=== PATIENT | female | born 1960 | race Two or more races ===

== ENCOUNTER 2016-04-21 14:10 | Inpatient (IN) | payer MEDICARE, MEDICAID ==
[~2016-04-21] VITALS: Ht 162.6 cm; Wt 45.4 kg
[~2016-04-21 14:10] MED LIST: CELEBREX100 MG ORAL; IBUPROFEN400 MG ORAL; NEXIUM2.5 MG ORAL; NORCO1 E1 ORAL; PREDNISONE5 M3 PO; RANITIDINE HCL150 MG ORAL; VALIUM5 MG ORAL
--- NOTE | 2016-04-21 15:00 | Emergency Room Report ---
History of Present Illness General Chief Complaint: Female Urogenital Problems Source: Patient Present Illness HPI 55-year-old female presents to emergency Department complaining of dysuria due to urinary tract infection for which she has been treated with oral antibiotics x2 months with no relief from Keflex or Cipro. Patient denies fevers or chills. Patient reports 10 out of 10 in severity dysuria denies hematuria although back pain. Denies CP, Palpitations, LOC, AMS, dizziness, Changes in Vision, Sensation, paresthesias, or a sudden severe headache. Allergies: Coded Allergies: PENICILLINS (Verified Allergy, Mild, Rash, 06/08/13) Patient History Past Medical History: see triage record Past Surgical History: none Pertinent Family History: none Now: No Immunizations: UTD Reviewed Nursing Documentation: PMH: Agreed, PSxH: Agreed Nursing Documentation-PMH Past Medical History: No History, Except For Hx Cardiac Problems: No - Rheumatoid arthritis Hx Cancer: Yes Hx Gastrointestinal Problems: Yes - Colon CA- colostomy Hx Neurological Problems: No Review of Systems All Other Systems: negative except mentioned in HPI Physical Exam Vital Signs Date Time Temp Pulse Resp B/P Pulse Ox O2 Delivery O2 Flow Rate FiO2 04/21/16 14:19 98.4 102 20 134/79 99 Room Air Sp02 EP Interpretation: abnormal - tachycardic at 102 General Appearance: no apparent distress, alert, GCS 15, non-toxic Head: normocephalic, atraumatic Eyes: bilateral eye PERRL, bilateral eye normal inspection ENT: hearing grossly normal, normal pharynx, no angioedema, normal voice Neck: full range of motion, supple/symm/no masses Respiratory: chest non-tender, lungs clear, normal breath sounds, speaking full sentences Cardiovascular #1: regular rate, rhythm, no edema Gastrointestinal: normal bowel sounds, non tender, soft, no guarding, no rebound Rectal: deferred Genitourinary: normal inspection, no CVA tenderness Musculoskeletal: back normal, normal range of motion, no calf tenderness, other - significant RA noted to the Hands bilaterally, pt. requires use of cane. Neurologic: alert, oriented x3, responsive, motor strength/tone normal, sensory intact, speech normal Psychiatric: judgement/insight normal, memory normal, mood/affect normal, no suicidal/homicidal ideation Skin: normal color, no rash, warm/dry, well hydrated Lymphatic: no adenopathy Medical Decision Making PA Attestation Dr. Calero is my supervising Physician whom patient management has been discussed with. Diagnostic Impression: Primary Impression: UTI (urinary tract infection) Qualified Codes: N30.00 - Acute cystitis without hematuria Additional Impression: Rheumatoid arthritis Qualified Codes: M06.9 - Rheumatoid arthritis, unspecified ER Course Pt. presents to the ED c/o dysuria, x 2 months no results from Keflex or Cipro. Ddx considered but are not limited to UTi , Pyelo, STI, Stone, Cystitis Vital signs: are WNL, pt. is afebrile H&PE are most consistent with UTI and two failed outpatient treatment attempts. ORDERS: - UA labs are attached : TNTC WBC's and few bacteria. -CBC: no leukocytosis, mild anemia noted. -CMP:hypochloremia, elevated alk phos. -Blood cultures x 2: Pending -Lactic acid: WNL ED INTERVENTIONS: -Pyridium 200mg -1g Aztreonam IVPB -500cc NS -Per Dr. Heath Culture sensitivity to Aztreonam. Pt. has E.Coli that is resistant to Cipro and Bactrim. DISPOSITION: at this time pt. will be admitted to Dr. Heath for UTI. Dr. Heath agreed to admit the pt. and to continue pt. care management. Labs Test 04/21/16 15:08 04/21/16 16:00 Urine Color Yellow Urine Appearance Cloudy Urine pH 5 (4.5-8.0) Urine Specific [place] 1.010 (1.005-1.035) Urine Protein 2+ (NEGATIVE) Urine Glucose (UA) Negative (NEGATIVE) Urine Ketones Negative (NEGATIVE) Urine Occult Blood 4+ (NEGATIVE) Urine Nitrite Negative (NEGATIVE) Urine Bilirubin Negative (NEGATIVE) Urine Urobilinogen Normal MG/DL (0.0-1.0) Urine Leukocyte Esterase 3+ (NEGATIVE) Urine RBC 0-2 /HPF (0 - 2) Urine WBC Tntc /HPF (0 - 2) Urine Squamous Epithelial Cells None /LPF (NONE/OCC) Urine Bacteria Few /HPF (NONE) White Blood Count 8.9 K/UL (4.8-10.8) Red Blood Count 3.29 M/UL (4.20-5.40) Hemoglobin 9.8 G/DL (12.0-16.0) Hematocrit 31.1 % (37.0-47.0) Mean Corpuscular Volume 95 FL (80-99) Mean Corpuscular Hemoglobin 29.7 PG (27.0-31.0) Mean Corpuscular Hemoglobin Concent 31.4 G/DL (32.0-36.0) Red Cell Distribution Width 16.5 % (11.6-14.8) Platelet Count 357 K/UL (150-450) Mean Platelet Volume 5.9 FL (6.5-10.1) Neutrophils (%) (Auto) 83.3 % (45.0-75.0) Lymphocytes (%) (Auto) 15.4 % (20.0-45.0) Monocytes (%) (Auto) 0.7 % (1.0-10.0) Eosinophils (%) (Auto) 0.3 % (0.0-3.0) Basophils (%) (Auto) 0.3 % (0.0-2.0) Sodium Level 136 mEQ/L (135-145) Potassium Level 4.7 mEQ/L (3.4-4.9) Chloride Level 95 mEQ/L (98-107) Carbon Dioxide Level 26 mEQ/L (20-30) Anion Gap 15 (5-15) Blood Urea Nitrogen 10 mg/dL (7-23) Creatinine 0.6 mg/dL (0.5-0.9) Estimat Glomerular Filtration Rate > 60 mL/min (>60) Glucose Level 106 mg/dL (74-106) Lactic Acid Level 1.40 mmol/L (0.66-2.22) Calcium Level 9.4 mg/dL (8.6-10.2) Total Bilirubin < 0.2 mg/dL (0.0-1.2) Aspartate Amino Transf (AST/SGOT) 25 U/L (5-40) Alanine Aminotransferase (ALT/SGPT) 23 U/L (3-33) Alkaline Phosphatase 382 U/L (35-104) Total Protein 8.6 g/dL (6.6-8.7) Albumin 3.5 g/dL (3.5-5.2) Globulin 5.1 g/dL Albumin/Globulin Ratio 0.6 (1.0-2.7) Last Vital Signs Date Time Temp Pulse Resp B/P Pulse Ox O2 Delivery O2 Flow Rate FiO2 04/21/16 14:19 98.4 102 20 134/79 99 Room Air Disposition: ADMITTED INPATIENT Condition: Ronda Kebede Apr 21, 2016 15:00
[2016-04-21 15:19] VITALS: BP 137/82
[2016-04-21] MEDS ORDERED: Phenazopyridine 200mg tab ORAL ONE (15:30)
[2016-04-21 16:32] LABS: APPEARANCE,URINE CLOUDY; KETONES,URINE NEGATIVE (NEGATIVE); LEUKOCYTE ESTERASE ,URINE 3+ (NEGATIVE); NITRITE,URINE NEGATIVE (NEGATIVE); PH,URINE 5 (4.5-8.0); PROTEIN,URINE 2+ (NEGATIVE); UROBILINOGEN,URINE NORMAL MG/DL (0.0-1.0)
[2016-04-21 16:38] LABS: RBC,URINE 0-2 /HPF (0 - 2); WBC,URINE TNTC /HPF (0 - 2)
[2016-04-21 16:39] LABS: BACTERIA,URINE FEW /HPF
[2016-04-21 16:47] LABS: BASOPHILS % (AUTO) 0.3 % (0.0-2.0); EOSINOPHILS % (AUTO) 0.3 % (0.0-3.0); LYMPHOCYTES % (AUTO) 15.4 % (20.0-45.0); MEAN CORPUSCULAR HEMOGLOBIN 29.7 PG (27.0-31.0); MEAN CORPUSCULAR HGB CONC 31.4 G/DL (32.0-36.0); MEAN CORPUSCULAR VOLUME 95 FL (80-99); MEAN PLATELET VOLUME 5.9 FL (6.5-10.1); MONOCYTES % (AUTO) 0.7 % (1.0-10.0); NEUTROPHILS % (AUTO) 83.3 % (45.0-75.0); PLATELET COUNT 357 K/UL (150-450); RED BLOOD COUNT 3.29 M/UL (4.20-5.40); RED CELL DISTRIBUTION WIDTH 16.5 % (11.6-14.8); WHITE BLOOD COUNT 8.9 K/UL (4.8-10.8)
[2016-04-21 16:51] LABS: ALANINE AMINOTRANSFERASE 23 U/L (3-33); ALBUMIN/GLOBULIN RATIO 0.6 (1.0-2.7); ANION GAP 15 (5-15); ASPARTATE AMINO TRANSFERASE 25 U/L (5-40); CALCIUM 9.4 mg/dL (8.6-10.2); CARBON DIOXIDE 26 mEQ/L (20-30); CHLORIDE 95 mEQ/L (98-107); CREATININE 0.6 mg/dL (0.5-0.9); GLOMERULAR FILTRATION RATE > 60 mL/min (>60); HEMOLYSIS 34; POTASSIUM 4.7 mEQ/L (3.4-4.9); SODIUM 136 mEQ/L (135-145); TOTAL PROTEIN 8.6 g/dL (6.6-8.7)
[2016-04-21 17:17] VITALS: BP 134/80
[2016-04-21] MEDS ORDERED: Aztreonam Inj 1 GM in D5W 55 ML IVPB ONE (18:30)
[2016-04-21 18:45] VITALS: BP 129/70
[2016-04-21] MEDS ORDERED: DOCUSATE SODIU100 MG ORAL (18:54)
[2016-04-21] MEDS ORDERED: CELEBREX200 MG ORAL (18:54)
--- NOTE | 2016-04-21 19:05 | History & Physical ---
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 was given keflex as it was sensitive to theat fut has doen worse admiited for possible pyelonephtitis PMH: RA ANEMIA CHROCNIC DISEASE fatigeu vulva cancer PSH: hip replcaement removal of most of pelvic oragan allergy: nkda viotal s reviewed no jcvd cta sof tno rgr no edema uti ra plan follow closcheryl start aztreonam adn get ifd and urology to maira. SUJATA ARRINGTON Apr 21, 2016 19:05
[2016-04-21] MEDS: Norco 7.5mg/325mg tab ORAL PRN (20:22)
[2016-04-21] MEDS: Aztreonam Inj 1 GM in D5W 55 ML IVPB SCH (21:42)
[2016-04-22] VITALS: BP 122/70
[2016-04-22] MEDS: Norco 7.5mg/325mg tab ORAL PRN ×2 (02:20→08:44)
[2016-04-22 04:00] VITALS: BP 113/69
[2016-04-22 06:47] LABS: BASOPHILS % (AUTO) 0.2 % (0.0-2.0); EOSINOPHILS % (AUTO) 0.6 % (0.0-3.0); LYMPHOCYTES % (AUTO) 19.5 % (20.0-45.0); MEAN CORPUSCULAR HEMOGLOBIN 28.8 PG (27.0-31.0); MEAN CORPUSCULAR HGB CONC 31.3 G/DL (32.0-36.0); MEAN CORPUSCULAR VOLUME 92 FL (80-99); MEAN PLATELET VOLUME 6.2 FL (6.5-10.1); NEUTROPHILS % (AUTO) 78.7 % (45.0-75.0); PLATELET COUNT 314 K/UL (150-450); RED BLOOD COUNT 3.02 M/UL (4.20-5.40); RED CELL DISTRIBUTION WIDTH 16.2 % (11.6-14.8); WHITE BLOOD COUNT 6.7 K/UL (4.8-10.8)
[2016-04-22 07:10] LABS: ANION GAP 12 (5-15); CALCIUM 8.8 mg/dL (8.6-10.2); CARBON DIOXIDE 26 mEQ/L (20-30); CHLORIDE 101 mEQ/L (98-107); CREATININE 0.5 mg/dL (0.5-0.9); GLOMERULAR FILTRATION RATE > 60 mL/min (>60); HEMOLYSIS 0; POTASSIUM 4.4 mEQ/L (3.4-4.9); SODIUM 139 mEQ/L (135-145)
[2016-04-22 08:15] VITALS: BP 127/70
[2016-04-22] MEDS: Aztreonam Inj 1 GM in D5W 55 ML IVPB SCH ×2 (08:41→22:02)
[2016-04-22] MEDS: Meloxicam 15 MG TAB ORAL SCH (08:44)
[2016-04-22] MEDS: Docusate 100mg cap ORAL SCH ×2 (08:44→18:16)
[2016-04-22] MEDS: PredniSONE 5mg tab ORAL SCH (08:45)
[2016-04-22 12:15] VITALS: BP 121/65
--- NOTE | 2016-04-22 14:27 | Infectious Diseases Prog Note ---
Assessment/Plan Assessment/Plan Full consult dictated: A) 1) uti, + ua, complicated uti 2) allergy - pcn 3) pmh noted P) 1) aztreonam 2) check uc 3) continue treatment per primary and urology 4) thank you Subjective Gastrointestinal/Abdominal: Reports: diarrhea, vomiting Genitourinary: Reports: other - no quiles Allergies: Coded Allergies: PENICILLINS (Verified Allergy, Mild, Rash, 06/08/13) Objective Vital Signs Last 24 Hour Vital Signs Date Time Temp Pulse Resp B/P Pulse Ox O2 Delivery O2 Flow Rate FiO2 04/22/16 12:15 97.8 82 20 121/65 95 Room Air 04/22/16 08:15 98.4 103 20 127/70 97 Room Air 04/22/16 04:00 97.9 83 18 113/69 96 Room Air 04/22/16 00:00 98.1 92 18 122/70 96 Room Air 04/21/16 18:45 98.1 90 20 129/70 100 Room Air 04/21/16 17:22 98.3 85 19 134/80 100 Room Air 04/21/16 17:17 85 19 134/80 100 Room Air 04/21/16 15:19 98.3 98 19 137/82 100 Room Air 04/21/16 14:19 98.4 102 20 134/79 99 Room Air Height (Feet): 5 Height (Inches): 4.00 Weight (Pounds): 100 Microbiology Date/Time Source Procedure Growth Status 04/21/16 15:08 Urine,Clean Catch Urine Culture - Preliminary Resulted Laboratory Tests Test 04/21/16 15:08 04/21/16 16:00 04/22/16 05:35 Urine Color Yellow Urine Appearance Cloudy Urine pH 5 (4.5-8.0) Urine Specific [place] 1.010 (1.005-1.035) Urine Protein 2+ (NEGATIVE) H Urine Glucose (UA) Negative (NEGATIVE) Urine Ketones Negative (NEGATIVE) Urine Occult Blood 4+ (NEGATIVE) H Urine Nitrite Negative (NEGATIVE) Urine Bilirubin Negative (NEGATIVE) Urine Urobilinogen Normal MG/DL (0.0-1.0) Urine Leukocyte Esterase 3+ (NEGATIVE) H Urine RBC 0-2 /HPF (0 - 2) Urine WBC Tntc /HPF (0 - 2) H Urine Squamous Epithelial Cells None /LPF (NONE/OCC) Urine Bacteria Few /HPF (NONE) White Blood Count 8.9 K/UL (4.8-10.8) 6.7 K/UL (4.8-10.8) Red Blood Count 3.29 M/UL (4.20-5.40) L 3.02 M/UL (4.20-5.40) L Hemoglobin 9.8 G/DL (12.0-16.0) L 8.7 G/DL (12.0-16.0) L Hematocrit 31.1 % (37.0-47.0) L 27.7 % (37.0-47.0) L Mean Corpuscular Volume 95 FL (80-99) 92 FL (80-99) Mean Corpuscular Hemoglobin 29.7 PG (27.0-31.0) 28.8 PG (27.0-31.0) Mean Corpuscular Hemoglobin Concent 31.4 G/DL (32.0-36.0) L 31.3 G/DL (32.0-36.0) L Red Cell Distribution Width 16.5 % (11.6-14.8) H 16.2 % (11.6-14.8) H Platelet Count 357 K/UL (150-450) 314 K/UL (150-450) Mean Platelet Volume 5.9 FL (6.5-10.1) L 6.2 FL (6.5-10.1) L Neutrophils (%) (Auto) 83.3 % (45.0-75.0) H 78.7 % (45.0-75.0) H Lymphocytes (%) (Auto) 15.4 % (20.0-45.0) L 19.5 % (20.0-45.0) L Monocytes (%) (Auto) 0.7 % (1.0-10.0) L 1.0 % (1.0-10.0) Eosinophils (%) (Auto) 0.3 % (0.0-3.0) 0.6 % (0.0-3.0) Basophils (%) (Auto) 0.3 % (0.0-2.0) 0.2 % (0.0-2.0) Sodium Level 136 mEQ/L (135-145) 139 mEQ/L (135-145) Potassium Level 4.7 mEQ/L (3.4-4.9) 4.4 mEQ/L (3.4-4.9) Chloride Level 95 mEQ/L (98-107) L 101 mEQ/L (98-107) Carbon Dioxide Level 26 mEQ/L (20-30) 26 mEQ/L (20-30) Anion Gap 15 (5-15) 12 (5-15) Blood Urea Nitrogen 10 mg/dL (7-23) 7 mg/dL (7-23) Creatinine 0.6 mg/dL (0.5-0.9) 0.5 mg/dL (0.5-0.9) Estimat Glomerular Filtration Rate > 60 mL/min (>60) > 60 mL/min (>60) Glucose Level 106 mg/dL (74-106) 91 mg/dL (74-106) Lactic Acid Level 1.40 mmol/L (0.66-2.22) Calcium Level 9.4 mg/dL (8.6-10.2) 8.8 mg/dL (8.6-10.2) Total Bilirubin < 0.2 mg/dL (0.0-1.2) Aspartate Amino Transf (AST/SGOT) 25 U/L (5-40) Alanine Aminotransferase (ALT/SGPT) 23 U/L (3-33) Alkaline Phosphatase 382 U/L (35-104) H Total Protein 8.6 g/dL (6.6-8.7) Albumin 3.5 g/dL (3.5-5.2) Globulin 5.1 g/dL Albumin/Globulin Ratio 0.6 (1.0-2.7) L Current Medications Medications (Trade) Dose Ordered Sig/Gabriela Route PRN Reason Start Time Stop Time Status Last Admin Dose Admin Acetaminophen/ Hydrocodone Bitart ([place] 7.5/325) 1 ea Q6H PRN ORAL Moderate Pain (Pain Scale 4-6) 04/22/16 11:00 04/28/16 19:14 Aztreonam/Dextrose (Azactam/D5W) 55 ml @ 110 mls/hr Q12HR IVPB 04/21/16 21:00 04/28/16 20:59 04/22/16 08:41 Docusate Sodium (Colace) 100 mg TWICE A DAY ORAL 04/22/16 09:00 05/22/16 08:59 04/22/16 08:44 Meloxicam (Mobic) 15 mg DAILY ORAL 04/22/16 09:00 05/22/16 08:59 04/22/16 08:44 Oxycodone/ Acetaminophen (Percocet 10/325) 1 tab Q4H PRN ORAL Severe Pain (Pain Scale 7-10) 04/22/16 11:00 04/29/16 10:59 Prednisone (predniSONE) 5 mg DAILY ORAL 04/22/16 09:00 05/22/16 08:59 04/22/16 08:45 EN DAVIS Apr 22, 2016 14:27
[2016-04-22 16:00] VITALS: BP 139/89
[2016-04-22] MEDS ORDERED: Tubing IV Secondary IV ONE (16:26)
--- NOTE | 2016-04-22 19:28 | Consultation ---
DATE OF CONSULTATION: 04/22/2016 CONSULTING PHYSICIAN: Anjel Robertson M.D. REFERRING PHYSICIAN: Emiliano Heath M.D. REASON FOR CONSULTATION: For evaluation of UTI. HISTORY OF PRESENT ILLNESS: This is an unfortunate 55-year-old female. She has a history of vulvar vaginal cancer. She has had a history of a surgical excision as well as radiation and skin grafting in the genital area. She also has a history of a colostomy. She apparently has a history of chronic hydronephrosis. She has had recurring urinary tract infections. She is able to urinate. She describes some dysuria, which apparently is chronic. She denies significant flank pain. Most of the history was obtained from the chart. PAST MEDICAL HISTORY: Significant for above. Also, history of osteoarthritis and history of colon cancer. PAST SURGICAL HISTORY: As above. Again colostomy. She had vaginal surgery with excision of tumor and radiation. CURRENT MEDICATIONS: In the hospital, the patient is on Percocet, [place], prednisone, Mobic, Colace, and aztreonam. ALLERGIES: Penicillin. SOCIAL HISTORY: She is currently nonsmoker. FAMILY HISTORY: Noncontributory. REVIEW OF SYSTEMS: As above. No chest pain. PHYSICAL EXAMINATION: GENERAL: This is an elderly female, in no acute distress. VITAL SIGNS: Temperature is 97.8 degrees, blood pressure 120/65, pulse is 80, and respirations 20. HEENT: Normocephalic. NECK: Supple. ABDOMEN: Soft. Colostomy is in place. GENITOURINARY: Reveals induration of the skin over the suprapubic area and vaginal area. The vulvar area is indurated. It is very difficult to even see introitus. EXTREMITIES: Slightly contracted. LABORATORY DATA: UA shows 2+ protein, 4+ blood, 3+ leukocyte esterase, too numerous to count WBCs, and few bacteria. White count is 6.7, hemoglobin 8.7, and platelets are 314,000. BUN 7, creatinine 0.5, and potassium 4.4. DIAGNOSTIC IMAGING STUDIES: The patient had a CT scan of the abdomen and pelvis last month and at that time, there was mention of right hydronephrosis, which appears to be chronic. There was no mention of obstructive uropathy. There was some leftward shift of the urinary bladder. IMPRESSION: 1. History of pyuria and urinary tract infection. 2. Hematuria. 3. Proteinuria. 4. Hydronephrosis. 5. Urinary tract symptoms of frequency. PLAN/DISCUSSION: The patient again does have a history of previous pelvic radiation, which has probably affected her bladder and the ureter. The findings are all chronic. 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 I would recommend to continue with empiric antibiotics ordered. We will follow up on the results of the urine culture and adjust accordingly. Her hydronephrosis appears to be chronic. There is no flank pain. Her renal function is stable and it can be watched. At some point, we will consider cystoscopy. I will follow the patient and any other recommendation will be forthcoming. Thank you Dr. Emiliano Heath for asking me to participate in this consultation. Anjel Robertson M.D. DR: STEWART JOB#: [id number] CC:
[2016-04-22 20:00] VITALS: BP 101/63
[2016-04-23] VITALS: BP 105/71
--- NOTE | 2016-04-23 01:58 | Consultation ---
DATE OF CONSULTATION: INFECTIOUS DISEASE CONSULTATION: ATTENDING PHYSICIAN: Emiliano Heath M.D. REASON FOR CONSULTATION: Complicated urinary tract infection, failing outpatient therapy. CHIEF COMPLAINT: The patient's chief complaint coming to the hospital is complicated UTI, failing outpatient therapy. HISTORY OF PRESENT ILLNESS: The patient is a 55-year-old female who has limited speaking ability. She is responsive and oriented. The patient presented to the [facility] with complicated UTI. The patient has generalized weakness. Urinalysis showed too many to count white blood cells. The patient was treated in an outpatient setting by oral antibiotics, but has failed therapy. Urine culture right now is pending and UA has too many to count white blood cells. The patient will be started on aztreonam and she is allergic to penicillin. She gets itching, but no significant swelling in my limited communication with the patient. Case discussed with RN. MAR was noted. Orders were noted. Notes were reviewed. PAST MEDICAL HISTORY: Includes the following: The patient has a past medical history of rheumatoid arthritis, anemia, history of fatigue, and history of vulvar cancer. She has a history of colostomy. She has anemia of chronic disease. No history of diabetes or hypertension. Please put past medical history in medical order. MEDICATIONS: Upon reviewing the MAR, the patient is on the following medications. She is on aztreonam. She is on Percocet. She is on [place]. She is on Mobic. She is on prednisone. She is on Colace. She has been on Pyridium and [place]. Please see medication in medical order. Outside medications were noted and reconciliated. She is on Celebrex, [place], docusate, and prednisone. ALLERGIES: Penicillin. She gets rash. I think she has already tried Keflex in the past and I believe she has tolerated it. SOCIAL HISTORY: Negative for smoking, alcohol, or drug use. FAMILY HISTORY: Noncontributory. Negative for exposure to tuberculosis or cancer. REVIEW OF SYSTEMS: Constitutional: No central line. No [place]. She has generalized weakness. She has no chills at this time. She has fatigue. No fevers at this time. Head And Neck: No thrush or dysphagia. Cardiac: No chest pain. GI: No nausea, vomiting, or diarrhea. : No [place]. Pulmonary: No congestion or shortness of breath. Skin: No rash or itching. Extremities: No extremity pain. Neurologic: No seizures. PHYSICAL EXAMINATION: VITAL SIGNS: Temperature 98.7 degrees, pulse rate 82, pulse rate has been as high as 103, respiratory rate 20, blood pressure 120/65, and saturation 95%. GENERAL: Alert and responsive, in no acute distress. HEENT: Head and Neck: Oral exam, no thrush. Eye exam, no icterus. Neck is supple. No JVD. No sinus tenderness. Normocephalic. No facial droop. No neck stiffness. HEART: Regular. No gallop or murmur. No friction or rub. LUNGS: Clear bilaterally. No rhonchi or rales. ABDOMEN: Soft. Positive bowel sounds. Nontender. She has a colostomy. SKIN: No rash or dermatitis. MUSCULOSKELETAL: No contractures. Legs are without cellulitis. PERIPHERAL VASCULAR: No cyanosis or gangrene. RECTAL: Deferred. PELVIC: Deferred. BREASTS: Deferred. GENITOURINARY: No [place]. No CVA tenderness. LINE: Line site is without phlebitis. No central line. EXTREMITIES: She has some what looks like rheumatoid arthritic changes of the hands. NEUROLOGIC: Intact and nonfocal. Alert and oriented x3. LABORATORY AND DIAGNOSTIC DATA: White count 6.7, hemoglobin 8.7, and platelet count 314,000. Creatinine is normal at 0.5. LFTs were noted. Alkaline phosphatase elevated at 382. There are no imaging studies. Urine culture is pending. Urinalysis had too many to count white blood cells and 3+ leukocyte esterase. ASSESSMENT AND PLAN: 1. The patient had a complicated urinary tract infection with severe urinary tract infection with positive urinalysis and some generalized weakness and fatigue, complicated urinary tract infection failing outpatient therapy. Patient will continue on aztreonam 1 g IV q 8h. Pending urine culture with gram-negative coverage results. Continue with aztreonam. Check urine culture and follow up labs. 2. The patient has rheumatoid arthritis. She is on steroids. 3. The patient has a history of vulvar cancer. She has a colostomy. 4. Elevated alkaline phosphatase, possibly related to bone. She has no abdominal pain at this time. 5. Anemia of chronic disease. 6. Fatigue. 7. History of hip replacement. 8. No history of diabetes or hypertension. 9. Allergic to penicillin, but I believe she tolerated Keflex. 10. Case communicated with Dr. Heath. 11. Case discussed with Dr. Robertson, Urology. 12. Case discussed with RN. 13. Case discussed with the patient. 14. MAR was noted. 15. Notes were reviewed. 16. Social history is negative. 17. Family history noncontributory. 18. Continue treatment per primary consultants. 19. Consider ultrasound of the abdomen for the elevated alkaline phosphatase. Everett Sanon M.D. DR: Ana M JOB#: [id number] CC:
[2016-04-23 04:00] VITALS: BP 129/69
[2016-04-23] MEDS: Aztreonam Inj 1 GM in D5W 55 ML IVPB SCH ×3 (05:04→22:37)
[2016-04-23] MEDS: Norco 7.5mg/325mg tab ORAL PRN ×2 (05:06→20:00)
[2016-04-23 08:14] VITALS: BP 117/70
[2016-04-23] MEDS: Meloxicam 15 MG TAB ORAL SCH (09:44)
[2016-04-23] MEDS: Docusate 100mg cap ORAL SCH ×2 (09:44→17:19)
[2016-04-23] MEDS: PredniSONE 5mg tab ORAL SCH (09:44)
--- NOTE | 2016-04-23 10:27 | Urology Progress Note ---
Assessment/Plan Assessment/Plan 1. History of pyuria and urinary tract infection. 2. Hematuria. 3. Proteinuria. 4. Hydronephrosis, resolved. 5. Urinary tract symptoms of frequency. abx as ordered per ID monitor clinically cysto later Subjective Allergies: Coded Allergies: PENICILLINS (Verified Allergy, Mild, Rash, 06/08/13) Subjective all noted Objective Last 24 Hour Vital Signs Date Time Temp Pulse Resp B/P Pulse Ox O2 Delivery O2 Flow Rate FiO2 04/23/16 08:14 98.1 96 15 117/70 98 Room Air 04/23/16 04:00 97.5 85 18 129/69 98 Room Air 04/23/16 00:00 97.9 85 18 105/71 97 Room Air 04/22/16 20:00 98.8 91 16 101/63 98 Room Air 04/22/16 16:00 98.2 98 17 139/89 100 Room Air 04/22/16 12:15 97.8 82 20 121/65 95 Room Air Intake and Output 04/22/16 04/23/16 19:00 07:00 Intake Total 535 ml 175 ml Balance 535 ml 175 ml Intake Oral 480 ml 120 ml IV Total 55 ml 55 ml # Voids 3 6 Microbiology Date/Time Source Procedure Growth Status 04/21/16 16:00 Blood Blood Culture - Preliminary NO GROWTH AFTER 24 HOURS Resulted 04/21/16 15:08 Urine,Clean Catch Urine Culture - Preliminary Resulted Current Medications Medications (Trade) Dose Ordered Sig/Gabriela Route PRN Reason Start Time Stop Time Status Last Admin Dose Admin Acetaminophen/ Hydrocodone Bitart 1 ea 1 ea Q6H PRN ORAL Moderate Pain (Pain Scale 4-6) 04/22/16 11:00 04/28/16 19:14 04/23/16 05:06 Aztreonam/Dextrose (Azactam/D5W) 55 ml @ 110 mls/hr Q8HR IVPB 04/22/16 22:00 04/29/16 21:59 04/23/16 05:04 Docusate Sodium (Colace) 100 mg TWICE A DAY ORAL 04/22/16 09:00 05/22/16 08:59 04/23/16 09:44 Meloxicam (Mobic) 15 mg DAILY ORAL 04/22/16 09:00 05/22/16 08:59 04/23/16 09:44 Oxycodone/ Acetaminophen (Percocet 10/325) 1 tab Q4H PRN ORAL Severe Pain (Pain Scale 7-10) 04/22/16 11:00 04/29/16 10:59 04/22/16 22:01 Prednisone (predniSONE) 5 mg DAILY ORAL 04/22/16 09:00 05/22/16 08:59 04/23/16 09:44 Height (Feet): 5 Height (Inches): 4.00 Weight (Pounds): 100 Objective exam stable abdominal u/s (04/22) noted and d/w radiologist, no hydro LY CHRISTIANSON Apr 23, 2016 10:27
[2016-04-23 11:37] VITALS: BP 108/65
--- NOTE | 2016-04-23 15:36 | Diagnostic Imaging Report ---
Indication:Abdominal pain Technique: Grayscale and duplex Doppler imaging of the abdomen performed. Comparison: None Findings: There is pneumobilia present. Gallbladder is unremarkable. Main portal vein is patent by Doppler exam. CBD is 3 mm. There is no free fluid. Spleen is normal in size. There are multiple splenic calcifications. Demonstrated part of the pancreas and aorta appear unremarkable. Impression: No acute findings. Splenic calcifications consistent with granulomata. Pneumobilia
[2016-04-23 16:00] VITALS: BP 106/67
[2016-04-23 19:00] VITALS: BP 112/65
--- NOTE | 2016-04-23 19:25 | General Progress Note ---
Assessment/Plan Status Narrative complicated urolgoical history recurent uti multio resistant bacterial urine infection history of bladder surgery history of recent xrt rheumatoixcd artheritis history of adrenal insufficieency antibiotic probbiotioc and follow per id and urology Subjective Date patient seen: Apr 23, 2016 Time patient seen: 19:23 Constitutional: Reports: no symptoms HEENT: Reports: no symptoms Cardiovascular: Reports: no symptoms Respiratory: Reports: no symptoms Gastrointestinal/Abdominal: Reports: no symptoms Allergies: Coded Allergies: PENICILLINS (Verified Allergy, Mild, Rash, 06/08/13) Objective Last 24 Hour Vital Signs Date Time Temp Pulse Resp B/P Pulse Ox O2 Delivery O2 Flow Rate FiO2 04/23/16 16:00 98.1 73 20 106/67 97 Room Air 04/23/16 13:15 97.7 04/23/16 11:37 97.7 89 16 108/65 93 Room Air 04/23/16 08:14 98.1 96 15 117/70 98 Room Air 04/23/16 04:00 97.5 85 18 129/69 98 Room Air 04/23/16 00:00 97.9 85 18 105/71 97 Room Air 04/22/16 20:00 98.8 91 16 101/63 98 Room Air Intake and Output 04/22/16 04/23/16 19:00 07:00 Intake Total 535 ml 175 ml Balance 535 ml 175 ml Intake Oral 480 ml 120 ml IV Total 55 ml 55 ml # Voids 3 6 Height (Feet): 5 Height (Inches): 4.00 Weight (Pounds): 100 General Appearance: WD/WN Neck: non-tender Cardiovascular: no JVD Respiratory/Chest: lungs clear Abdomen: non tender, soft SUJATA ARRINGTON Apr 23, 2016 19:25
[2016-04-24] VITALS: BP 120/64
[2016-04-24 04:00] VITALS: BP 111/67
[2016-04-24] MEDS: Aztreonam Inj 1 GM in D5W 55 ML IVPB SCH (05:36)
[2016-04-24] MEDS: Norco 7.5mg/325mg tab ORAL PRN (05:37)
[2016-04-24 07:11] LABS: BASOPHILS % (AUTO) 0.5 % (0.0-2.0); EOSINOPHILS % (AUTO) 0.7 % (0.0-3.0); LYMPHOCYTES % (AUTO) 21.8 % (20.0-45.0); MEAN CORPUSCULAR HEMOGLOBIN 28.8 PG (27.0-31.0); MEAN CORPUSCULAR HGB CONC 31.8 G/DL (32.0-36.0); MEAN CORPUSCULAR VOLUME 90 FL (80-99); MEAN PLATELET VOLUME 6.4 FL (6.5-10.1); MONOCYTES % (AUTO) 1.4 % (1.0-10.0); NEUTROPHILS % (AUTO) 75.6 % (45.0-75.0); PLATELET COUNT 327 K/UL (150-450); RED BLOOD COUNT 2.94 M/UL (4.20-5.40); RED CELL DISTRIBUTION WIDTH 16.6 % (11.6-14.8)
[2016-04-24 07:24] LABS: ANION GAP 14 (5-15); CALCIUM 8.6 mg/dL (8.6-10.2); CARBON DIOXIDE 24 mEQ/L (20-30); CHLORIDE 96 mEQ/L (98-107); CREATININE 0.5 mg/dL (0.5-0.9); GLOMERULAR FILTRATION RATE > 60 mL/min (>60); HEMOLYSIS 2; POTASSIUM 4.4 mEQ/L (3.4-4.9); SODIUM 134 mEQ/L (135-145)
[2016-04-24 08:34] VITALS: BP 112/72
[2016-04-24] MEDS: Docusate 100mg cap ORAL SCH ×2 (09:41→18:51)
[2016-04-24] MEDS: PredniSONE 5mg tab ORAL SCH (09:41)
[2016-04-24] MEDS: Meloxicam 15 MG TAB ORAL SCH (09:41)
[2016-04-24 11:59] VITALS: BP 106/62
--- NOTE | 2016-04-24 13:17 | Urology Progress Note ---
Assessment/Plan Assessment/Plan 1. History of pyuria and urinary tract infection. 2. Hematuria. 3. Proteinuria. 4. Hydronephrosis, resolved. 5. Urinary tract symptoms of frequency. abx as ordered per ID monitor clinically cysto later Subjective Allergies: Coded Allergies: PENICILLINS (Verified Allergy, Mild, Rash, 06/08/13) Subjective all noted, feels fair Objective Last 24 Hour Vital Signs Date Time Temp Pulse Resp B/P Pulse Ox O2 Delivery O2 Flow Rate FiO2 04/24/16 11:59 97.9 81 15 106/62 99 Room Air 04/24/16 08:34 97.8 62 16 112/72 98 Room Air 04/24/16 06:36 97.3 04/24/16 04:00 97.3 72 18 111/67 99 Room Air 04/24/16 01:04 97.0 04/24/16 00:00 97.0 76 20 120/64 94 Room Air 04/23/16 19:00 97.5 84 20 112/65 97 Room Air 04/23/16 16:00 98.1 73 20 106/67 97 Room Air Intake and Output 04/23/16 04/24/16 19:00 07:00 Intake Total 855 ml 295 ml Output Total 300 ml Balance 555 ml 295 ml Intake Oral 800 ml 240 ml IV Total 55 ml 55 ml Output Urine Total 300 ml # Voids 2 6 Microbiology Date/Time Source Procedure Growth Status 04/21/16 16:00 Blood Blood Culture - Preliminary NO GROWTH AFTER 48 HOURS Resulted 04/21/16 15:08 Urine,Clean Catch Urine Culture - Final Pseudomonas Aeruginosa Complete Current Medications Medications (Trade) Dose Ordered Sig/Gabriela Route PRN Reason Start Time Stop Time Status Last Admin Dose Admin Acetaminophen/ Hydrocodone Bitart 1 ea 1 ea Q6H PRN ORAL Moderate Pain (Pain Scale 4-6) 04/22/16 11:00 04/28/16 19:14 04/24/16 05:37 Aztreonam/Dextrose (Azactam/D5W) 55 ml @ 110 mls/hr Q8HR IVPB 04/22/16 22:00 04/29/16 21:59 04/24/16 05:36 Docusate Sodium (Colace) 100 mg TWICE A DAY ORAL 04/22/16 09:00 05/22/16 08:59 04/24/16 09:41 Meloxicam (Mobic) 15 mg DAILY ORAL 04/22/16 09:00 05/22/16 08:59 04/24/16 09:41 Oxycodone/ Acetaminophen (Percocet 10/325) 1 tab Q4H PRN ORAL Severe Pain (Pain Scale 7-10) 04/22/16 11:00 04/29/16 10:59 04/24/16 09:41 Prednisone (predniSONE) 5 mg DAILY ORAL 04/22/16 09:00 05/22/16 08:59 04/24/16 09:41 Laboratory Tests 04/24/16 06:30: White Blood Count 6.0, Red Blood Count 2.94L, Hemoglobin 8.5L, Hematocrit 26.6L , Mean Corpuscular Volume 90, Mean Corpuscular Hemoglobin 28.8, Mean Corpuscular Hemoglobin Concent 31.8L, Red Cell Distribution Width 16.6H, Platelet Count 327, Mean Platelet Volume 6.4L, Neutrophils (%) (Auto) 75.6H, Lymphocytes (%) (Auto) 21.8, Monocytes (%) (Auto) 1.4, Eosinophils (%) (Auto) 0.7, Basophils (%) (Auto) 0.5, Sodium Level 134L, Potassium Level 4.4, Chloride Level 96L, Carbon Dioxide Level 24, Anion Gap 14, Blood Urea Nitrogen 8, Creatinine 0.5, Estimat Glomerular Filtration Rate > 60, Glucose Level 97, Calcium Level 8.6 Height (Feet): 5 Height (Inches): 4.00 Weight (Pounds): 100 Objective exam stable abdominal u/s (04/22) noted and d/w radiologist, no LY Dickinson Apr 24, 2016 13:17
--- NOTE | 2016-04-24 13:51 | Infectious Diseases Prog Note ---
Assessment/Plan Assessment/Plan ASSESSMENT AND PLAN: 1. pseudomonas uti, complicated uti - change abx to cipro for 7 days more - discontinue aztreonam - check labs 2. The patient has rheumatoid arthritis. She is on steroids. 3. The patient has a history of vulvar cancer. She has a colostomy. 4. Elevated alkaline phosphatase, possibly related to bone. She has no abdominal pain at this time. 5. Anemia of chronic disease. 6. Fatigue. 7. History of hip replacement. 8. No history of diabetes or hypertension. 9. Allergic to penicillin, but I believe she tolerated Keflex. 10. Case communicated with Dr. Heath. 11. Case discussed with Dr. Robertson, Urology. 12. Case discussed with RN. 13. Case discussed with the patient. 14. MAR was noted. 15. Notes were reviewed. 16. Social history is negative. 17. Family history noncontributory. 18. Continue treatment per primary consultants. Subjective Constitutional: Denies: fever HEENT: Denies: congestion Respiratory: Denies: shortness of breath Cardiovascular: Denies: chest pain Gastrointestinal/Abdominal: Denies: diarrhea, nausea, vomiting Genitourinary: Reports: other - no quiles Psychiatric: Denies: depression Skin: Denies: rash Hematologic: Denies: bleeding Musculoskeletal: Denies: pain Allergies: Coded Allergies: PENICILLINS (Verified Allergy, Mild, Rash, 06/08/13) Objective Vital Signs Last 24 Hour Vital Signs Date Time Temp Pulse Resp B/P Pulse Ox O2 Delivery O2 Flow Rate FiO2 04/24/16 11:59 97.9 81 15 106/62 99 Room Air 04/24/16 08:34 97.8 62 16 112/72 98 Room Air 04/24/16 06:36 97.3 04/24/16 04:00 97.3 72 18 111/67 99 Room Air 04/24/16 01:04 97.0 04/24/16 00:00 97.0 76 20 120/64 94 Room Air 04/23/16 19:00 97.5 84 20 112/65 97 Room Air 04/23/16 16:00 98.1 73 20 106/67 97 Room Air Height (Feet): 5 Height (Inches): 4.00 Weight (Pounds): 100 General Appearance: no acute distress HEENT: normocephalic, atraumatic, anicteric, mucous membranes moist, PERRL, EOMI, pharynx normal, supple, no JVD Respiratory/Chest: lungs clear, normal breath sounds, no respiratory distress, no accessory muscle use Cardiovascular: normal rate, regular rhythm, no gallop/murmur, no JVD Abdomen: normal bowel sounds, soft, non tender, no organomegaly, non distended Genitourinary: other - no quiles, no cva pain Extremities: no cyanosis Skin: no rash 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, alert, oriented x 3, responsive Lymphatic: no neck adenopathy Musculoskeletal: no effusion Objective us abdomen - no acute findings Microbiology Date/Time Source Procedure Growth Status 04/21/16 16:00 Blood Blood Culture - Preliminary NO GROWTH AFTER 48 HOURS Resulted 04/21/16 15:45 Blood Blood Culture - Preliminary NO GROWTH AFTER 48 HOURS Resulted 04/21/16 15:08 Urine,Clean Catch Urine Culture - Final Pseudomonas Aeruginosa Complete Laboratory Tests Test 04/24/16 06:30 White Blood Count 6.0 K/UL (4.8-10.8) Red Blood Count 2.94 M/UL (4.20-5.40) L Hemoglobin 8.5 G/DL (12.0-16.0) L Hematocrit 26.6 % (37.0-47.0) L Mean Corpuscular Volume 90 FL (80-99) Mean Corpuscular Hemoglobin 28.8 PG (27.0-31.0) Mean Corpuscular Hemoglobin Concent 31.8 G/DL (32.0-36.0) L Red Cell Distribution Width 16.6 % (11.6-14.8) H Platelet Count 327 K/UL (150-450) Mean Platelet Volume 6.4 FL (6.5-10.1) L Neutrophils (%) (Auto) 75.6 % (45.0-75.0) H Lymphocytes (%) (Auto) 21.8 % (20.0-45.0) Monocytes (%) (Auto) 1.4 % (1.0-10.0) Eosinophils (%) (Auto) 0.7 % (0.0-3.0) Basophils (%) (Auto) 0.5 % (0.0-2.0) Sodium Level 134 mEQ/L (135-145) L Potassium Level 4.4 mEQ/L (3.4-4.9) Chloride Level 96 mEQ/L (98-107) L Carbon Dioxide Level 24 mEQ/L (20-30) Anion Gap 14 (5-15) Blood Urea Nitrogen 8 mg/dL (7-23) Creatinine 0.5 mg/dL (0.5-0.9) Estimat Glomerular Filtration Rate > 60 mL/min (>60) Glucose Level 97 mg/dL (74-106) Calcium Level 8.6 mg/dL (8.6-10.2) Current Medications Medications (Trade) Dose Ordered Sig/Gabriela Route PRN Reason Start Time Stop Time Status Last Admin Dose Admin Acetaminophen/ Hydrocodone Bitart 1 ea 1 ea Q6H PRN ORAL Moderate Pain (Pain Scale 4-6) 04/22/16 11:00 04/28/16 19:14 04/24/16 05:37 Aztreonam/Dextrose (Azactam/D5W) 55 ml @ 110 mls/hr Q8HR IVPB 04/22/16 22:00 04/29/16 21:59 04/24/16 05:36 Docusate Sodium (Colace) 100 mg TWICE A DAY ORAL 04/22/16 09:00 05/22/16 08:59 04/24/16 09:41 Meloxicam (Mobic) 15 mg DAILY ORAL 04/22/16 09:00 05/22/16 08:59 04/24/16 09:41 Oxycodone/ Acetaminophen (Percocet 10/325) 1 tab Q4H PRN ORAL Severe Pain (Pain Scale 7-10) 04/22/16 11:00 04/29/16 10:59 04/24/16 09:41 Prednisone (predniSONE) 5 mg DAILY ORAL 04/22/16 09:00 05/22/16 08:59 04/24/16 09:41 EN DAVIS Apr 24, 2016 13:51
[2016-04-24 16:00] VITALS: BP_SYST 104; BP_SYST 93; BP_DIAS 56; BP_DIAS 65
--- NOTE | 2016-04-24 17:45 | General Progress Note ---
Assessment/Plan Status Narrative complicated uti ra fatigue anemia of chronci diseae Assessment/Plan Iv antibiotic pt eval probiotic urology adn id recommendation appreciated. Subjective Date patient seen: Apr 24, 2016 Time patient seen: 17:43 Constitutional: Reports: no symptoms HEENT: Reports: no symptoms Cardiovascular: Reports: no symptoms Respiratory: Reports: no symptoms Gastrointestinal/Abdominal: Reports: no symptoms Neurologic/Psychiatric: Reports: no symptoms Endocrine: Reports: no symptoms Allergies: Coded Allergies: PENICILLINS (Verified Allergy, Mild, Rash, 06/08/13) Objective Last 24 Hour Vital Signs Date Time Temp Pulse Resp B/P Pulse Ox O2 Delivery O2 Flow Rate FiO2 04/24/16 16:00 97.9 91 19 104/65 98 Room Air 04/24/16 16:00 97.7 79 20 93/56 99 Room Air 04/24/16 11:59 97.9 81 15 106/62 99 Room Air 04/24/16 08:34 97.8 62 16 112/72 98 Room Air 04/24/16 06:36 97.3 04/24/16 04:00 97.3 72 18 111/67 99 Room Air 04/24/16 01:04 97.0 04/24/16 00:00 97.0 76 20 120/64 94 Room Air 04/23/16 19:00 97.5 84 20 112/65 97 Room Air Intake and Output 04/23/16 04/24/16 19:00 07:00 Intake Total 855 ml 295 ml Output Total 300 ml Balance 555 ml 295 ml Intake Oral 800 ml 240 ml IV Total 55 ml 55 ml Output Urine Total 300 ml # Voids 2 6 Laboratory Tests 04/24/16 06:30: White Blood Count 6.0, Red Blood Count 2.94L, Hemoglobin 8.5L, Hematocrit 26.6L , Mean Corpuscular Volume 90, Mean Corpuscular Hemoglobin 28.8, Mean Corpuscular Hemoglobin Concent 31.8L, Red Cell Distribution Width 16.6H, Platelet Count 327, Mean Platelet Volume 6.4L, Neutrophils (%) (Auto) 75.6H, Lymphocytes (%) (Auto) 21.8, Monocytes (%) (Auto) 1.4, Eosinophils (%) (Auto) 0.7, Basophils (%) (Auto) 0.5, Sodium Level 134L, Potassium Level 4.4, Chloride Level 96L, Carbon Dioxide Level 24, Anion Gap 14, Blood Urea Nitrogen 8, Creatinine 0.5, Estimat Glomerular Filtration Rate > 60, Glucose Level 97, Calcium Level 8.6 Height (Feet): 5 Height (Inches): 4.00 Weight (Pounds): 100 General Appearance: WD/WN EENT: PERRL/EOMI Cardiovascular: normal rate, regular rhythm, no JVD Respiratory/Chest: lungs clear Abdomen: soft Extremities: other - no edema SUJATA ARRINGTON Apr 24, 2016 17:45
[2016-04-24 20:00] VITALS: BP 110/63
[2016-04-25 00:45] VITALS: BP 113/70
[2016-04-25 04:00] VITALS: BP 131/72
[2016-04-25] MEDS: Norco 7.5mg/325mg tab ORAL PRN (06:43)
[2016-04-25 07:48] LABS: BASOPHILS % (AUTO) 0.3 % (0.0-2.0); EOSINOPHILS % (AUTO) 0.7 % (0.0-3.0); LYMPHOCYTES % (AUTO) 24.2 % (20.0-45.0); MEAN CORPUSCULAR HEMOGLOBIN 28.9 PG (27.0-31.0); MEAN CORPUSCULAR HGB CONC 31.8 G/DL (32.0-36.0); MEAN CORPUSCULAR VOLUME 91 FL (80-99); MEAN PLATELET VOLUME 5.9 FL (6.5-10.1); MONOCYTES % (AUTO) 1.3 % (1.0-10.0); NEUTROPHILS % (AUTO) 73.5 % (45.0-75.0); PLATELET COUNT 331 K/UL (150-450); RED BLOOD COUNT 3.01 M/UL (4.20-5.40); RED CELL DISTRIBUTION WIDTH 16.5 % (11.6-14.8); WHITE BLOOD COUNT 6.2 K/UL (4.8-10.8)
[2016-04-25 08:10] VITALS: BP 106/63
[2016-04-25] MEDS: Meloxicam 15 MG TAB ORAL SCH (08:21)
[2016-04-25] MEDS: PredniSONE 5mg tab ORAL SCH (08:21)
[2016-04-25 08:22] LABS: ANION GAP 14 (5-15); CALCIUM 8.5 mg/dL (8.6-10.2); CARBON DIOXIDE 26 mEQ/L (20-30); CHLORIDE 94 mEQ/L (98-107); CREATININE 0.5 mg/dL (0.5-0.9); GLOMERULAR FILTRATION RATE > 60 mL/min (>60); HEMOLYSIS 2; POTASSIUM 4.1 mEQ/L (3.4-4.9); SODIUM 134 mEQ/L (135-145)
[2016-04-25] MEDS: Docusate 100mg cap ORAL SCH ×2 (08:22→18:41)
--- NOTE | 2016-04-25 08:53 | Urology Progress Note ---
Assessment/Plan Assessment/Plan 1. History of pyuria and urinary tract infection. 2. Hematuria. 3. Proteinuria. 4. Hydronephrosis, resolved. 5. Urinary tract symptoms of frequency. abx as ordered per ID monitor clinically cysto later Subjective Allergies: Coded Allergies: PENICILLINS (Verified Allergy, Mild, Rash, 06/08/13) Subjective all noted, feels fair Objective Last 24 Hour Vital Signs Date Time Temp Pulse Resp B/P Pulse Ox O2 Delivery O2 Flow Rate FiO2 04/25/16 08:10 98.1 15 106/63 98 Room Air 04/25/16 04:00 97.5 83 18 131/72 98 Room Air 04/25/16 00:45 97.9 76 18 113/70 99 Room Air 04/24/16 20:00 97.3 76 16 110/63 97 Room Air 04/24/16 16:00 97.9 91 19 104/65 98 Room Air 04/24/16 16:00 97.7 79 20 93/56 99 Room Air 04/24/16 11:59 97.9 81 15 106/62 99 Room Air Intake and Output 04/24/16 04/25/16 19:00 07:00 Intake Total 1200 ml 490 ml Output Total 800 ml Balance 400 ml 490 ml Intake Oral 1200 ml 490 ml Output Urine Total 800 ml # Voids 2 8 # Bowel Movements 1 1 Microbiology Date/Time Source Procedure Growth Status 04/21/16 16:00 Blood Blood Culture - Preliminary NO GROWTH AFTER 48 HOURS Resulted 04/21/16 15:08 Urine,Clean Catch Urine Culture - Final Pseudomonas Aeruginosa Complete Current Medications Medications (Trade) Dose Ordered Sig/Gabriela Route PRN Reason Start Time Stop Time Status Last Admin Dose Admin Acetaminophen/ Hydrocodone Bitart 1 ea 1 ea Q6H PRN ORAL Moderate Pain (Pain Scale 4-6) 04/22/16 11:00 04/28/16 19:14 04/25/16 06:43 Ciprofloxacin (Cipro 400mg/ 200ml premix bag) 200 ml @ 200 mls/hr Q12HR@0600,1800 IV 04/24/16 16:00 05/01/16 15:59 04/25/16 06:30 Docusate Sodium (Colace) 100 mg TWICE A DAY ORAL 04/22/16 09:00 05/22/16 08:59 04/25/16 08:22 Meloxicam (Mobic) 15 mg DAILY ORAL 04/22/16 09:00 05/22/16 08:59 04/25/16 08:21 Oxycodone/ Acetaminophen (Percocet 10/325) 1 tab Q4H PRN ORAL Severe Pain (Pain Scale 7-10) 04/22/16 11:00 04/29/16 10:59 04/24/16 21:57 Prednisone (predniSONE) 5 mg DAILY ORAL 04/22/16 09:00 05/22/16 08:59 04/25/16 08:21 Laboratory Tests 04/25/16 05:45: White Blood Count 6.2, Red Blood Count 3.01L, Hemoglobin 8.7L, Hematocrit 27.3L , Mean Corpuscular Volume 91, Mean Corpuscular Hemoglobin 28.9, Mean Corpuscular Hemoglobin Concent 31.8L, Red Cell Distribution Width 16.5H, Platelet Count 331, Mean Platelet Volume 5.9L, Neutrophils (%) (Auto) 73.5, Lymphocytes (%) (Auto) 24.2, Monocytes (%) (Auto) 1.3, Eosinophils (%) (Auto) 0.7, Basophils (%) (Auto) 0.3, Sodium Level 134L, Potassium Level 4.1, Chloride Level 94L, Carbon Dioxide Level 26, Anion Gap 14, Blood Urea Nitrogen 6L, Creatinine 0.5, Estimat Glomerular Filtration Rate > 60, Glucose Level 106, Calcium Level 8.5L Height (Feet): 5 Height (Inches): 4.00 Weight (Pounds): 100 Objective exam stable abdominal u/s (04/22) noted and d/w radiologist, no hydro LY CHRISTIANSON Apr 25, 2016 08:53
[2016-04-25 11:41] VITALS: BP 128/76
[2016-04-25 16:25] VITALS: BP 149/75
--- NOTE | 2016-04-25 17:23 | General Progress Note ---
Assessment/Plan Assessment/Plan complictaed uti historyof bladder urether surgeyr as/p recent xrt vulvar canbcer anenis antibiotic probiotic dc dena Subjective Date patient seen: Apr 25, 2016 Constitutional: Reports: no symptoms HEENT: Reports: no symptoms Cardiovascular: Reports: no symptoms Respiratory: Reports: no symptoms Gastrointestinal/Abdominal: Reports: no symptoms Allergies: Coded Allergies: PENICILLINS (Verified Allergy, Mild, Rash, 06/08/13) Objective Last 24 Hour Vital Signs Date Time Temp Pulse Resp B/P Pulse Ox O2 Delivery O2 Flow Rate FiO2 04/25/16 16:25 97.9 78 15 149/75 100 Room Air 04/25/16 11:41 97.9 82 16 128/76 99 Room Air 04/25/16 08:10 98.1 15 106/63 98 Room Air 04/25/16 04:00 97.5 83 18 131/72 98 Room Air 04/25/16 00:45 97.9 76 18 113/70 99 Room Air 04/24/16 20:00 97.3 76 16 110/63 97 Room Air Intake and Output 04/24/16 04/25/16 19:00 07:00 Intake Total 1200 ml 490 ml Output Total 800 ml Balance 400 ml 490 ml Intake Oral 1200 ml 490 ml Output Urine Total 800 ml # Voids 2 8 # Bowel Movements 1 1 Laboratory Tests 04/25/16 05:45: White Blood Count 6.2, Red Blood Count 3.01L, Hemoglobin 8.7L, Hematocrit 27.3L , Mean Corpuscular Volume 91, Mean Corpuscular Hemoglobin 28.9, Mean Corpuscular Hemoglobin Concent 31.8L, Red Cell Distribution Width 16.5H, Platelet Count 331, Mean Platelet Volume 5.9L, Neutrophils (%) (Auto) 73.5, Lymphocytes (%) (Auto) 24.2, Monocytes (%) (Auto) 1.3, Eosinophils (%) (Auto) 0.7, Basophils (%) (Auto) 0.3, Sodium Level 134L, Potassium Level 4.1, Chloride Level 94L, Carbon Dioxide Level 26, Anion Gap 14, Blood Urea Nitrogen 6L, Creatinine 0.5, Estimat Glomerular Filtration Rate > 60, Glucose Level 106, Calcium Level 8.5L Height (Feet): 5 Height (Inches): 4.00 Weight (Pounds): 100 General Appearance: WD/WN Cardiovascular: no JVD Respiratory/Chest: lungs clear Abdomen: non tender, soft SUJATA ARRINGTON Apr 25, 2016 17:23
[2016-04-25 20:00] VITALS: BP 105/72
[2016-04-26] VITALS: BP 117/69
[2016-04-26 04:00] VITALS: BP 114/62
[2016-04-26] MEDS: Norco 7.5mg/325mg tab ORAL PRN ×2 (07:42→15:50)
[2016-04-26 08:15] VITALS: BP 138/69
[2016-04-26] MEDS: Docusate 100mg cap ORAL SCH ×2 (09:00→17:11)
[2016-04-26] MEDS: Meloxicam 15 MG TAB ORAL SCH (09:15)
[2016-04-26] MEDS: PredniSONE 5mg tab ORAL SCH (09:16)
--- NOTE | 2016-04-26 09:32 | Urology Progress Note ---
Assessment/Plan Assessment/Plan 1. History of pyuria and urinary tract infection. 2. Hematuria. 3. Proteinuria. 4. Hydronephrosis, resolved. 5. Urinary tract symptoms of frequency. abx as ordered per ID monitor clinically cysto later f/u on blood cx check repeat urine cx later Subjective Allergies: Coded Allergies: PENICILLINS (Verified Allergy, Mild, Rash, 06/08/13) Subjective all noted, feels fair Objective Last 24 Hour Vital Signs Date Time Temp Pulse Resp B/P Pulse Ox O2 Delivery O2 Flow Rate FiO2 04/26/16 08:15 98.3 70 21 138/69 97 Room Air 04/26/16 04:00 97.7 84 18 114/62 98 Room Air 04/26/16 00:00 97.7 78 18 117/69 99 Room Air 04/25/16 20:00 97.9 82 18 105/72 98 Room Air 04/25/16 16:25 97.9 78 15 149/75 100 Room Air 04/25/16 11:41 97.9 82 16 128/76 99 Room Air Intake and Output 04/25/16 04/26/16 19:00 07:00 Intake Total 1300 ml 350 ml Output Total 400 ml Balance 900 ml 350 ml Intake Oral 1300 ml 350 ml Output Urine Total 400 ml # Voids 4 Microbiology Date/Time Source Procedure Growth Status 04/21/16 16:00 Blood Blood Culture - Preliminary NO GROWTH AFTER 72 HOURS Resulted 04/21/16 15:08 Urine,Clean Catch Urine Culture - Final Pseudomonas Aeruginosa Complete Current Medications Medications (Trade) Dose Ordered Sig/Gabriela Route PRN Reason Start Time Stop Time Status Last Admin Dose Admin Acetaminophen/ Hydrocodone Bitart 1 ea 1 ea Q6H PRN ORAL Moderate Pain (Pain Scale 4-6) 04/22/16 11:00 04/28/16 19:14 04/26/16 07:42 Ciprofloxacin (Cipro 400mg/ 200ml premix bag) 200 ml @ 200 mls/hr Q12HR@0600,1800 IV 04/24/16 16:00 05/01/16 15:59 04/26/16 05:46 Docusate Sodium (Colace) 100 mg TWICE A DAY ORAL 04/22/16 09:00 05/22/16 08:59 04/25/16 18:41 Meloxicam (Mobic) 15 mg DAILY ORAL 04/22/16 09:00 05/22/16 08:59 04/26/16 09:15 Oxycodone/ Acetaminophen (Percocet 10/325) 1 tab Q4H PRN ORAL Severe Pain (Pain Scale 7-10) 04/22/16 11:00 04/29/16 10:59 04/25/16 22:43 Prednisone (predniSONE) 5 mg DAILY ORAL 04/22/16 09:00 05/22/16 08:59 04/26/16 09:16 Height (Feet): 5 Height (Inches): 4.00 Weight (Pounds): 100 Objective exam stable abdominal u/s (04/22) noted and d/w radiologist, no hydro LY CHRISTIANSON Apr 26, 2016 09:32
[2016-04-26] MEDS ORDERED: Tubing IV Secondary IV ONE (11:08)
[2016-04-26] MEDS ORDERED: NS 275ml ONE (11:08)
[2016-04-26 12:00] VITALS: BP 113/68
--- NOTE | 2016-04-26 13:44 | Infectious Diseases Prog Note ---
Assessment/Plan Assessment/Plan ASSESSMENT AND PLAN: 1. pseudomonas uti, complicated uti - cipro for 5 days more - clinically improved - check labs 2. The patient has rheumatoid arthritis. She is on steroids. 3. The patient has a history of vulvar cancer. She has a colostomy. 4. Elevated alkaline phosphatase, possibly related to bone. She has no abdominal pain at this time. 5. Anemia of chronic disease. 6. Fatigue. 7. History of hip replacement. 8. No history of diabetes or hypertension. 9. Allergic to penicillin, but I believe she tolerated Keflex. 10. Case communicated with Dr. Heath. 11. Case discussed with Dr. Robertson, Urology. 12. Case discussed with RN. 13. Case discussed with the patient. 14. MAR was noted. 15. Notes were reviewed. 16. Social history is negative. 17. Family history noncontributory. 18. Continue treatment per primary consultants. Subjective Constitutional: Denies: fever HEENT: Denies: congestion Respiratory: Denies: shortness of breath Cardiovascular: Denies: chest pain Gastrointestinal/Abdominal: Denies: diarrhea, nausea, vomiting Genitourinary: Reports: other - no quiles, urinary symptoms improved, Denies: dysuria, frequency, hematuria Neurologic: Denies: headache Psychiatric: Denies: depression Skin: Denies: rash Hematologic: Denies: bleeding Musculoskeletal: Denies: pain Allergies: Coded Allergies: PENICILLINS (Verified Allergy, Mild, Rash, 06/08/13) Objective Vital Signs Last 24 Hour Vital Signs Date Time Temp Pulse Resp B/P Pulse Ox O2 Delivery O2 Flow Rate FiO2 04/26/16 08:15 98.3 70 21 138/69 97 Room Air 04/26/16 04:00 97.7 84 18 114/62 98 Room Air 04/26/16 00:00 97.7 78 18 117/69 99 Room Air 04/25/16 20:00 97.9 82 18 105/72 98 Room Air 04/25/16 16:25 97.9 78 15 149/75 100 Room Air Height (Feet): 5 Height (Inches): 4.00 Weight (Pounds): 100 General Appearance: no acute distress HEENT: normocephalic, atraumatic, anicteric, mucous membranes moist, PERRL, EOMI, pharynx normal, supple, no JVD Respiratory/Chest: lungs clear, normal breath sounds, no respiratory distress, no accessory muscle use Cardiovascular: normal rate, regular rhythm, no gallop/murmur, no JVD Abdomen: normal bowel sounds, soft, non tender, no organomegaly, non distended Genitourinary: other - no quiles Extremities: no cyanosis Skin: no rash 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3 % (37.0-47.0) Mean Corpuscular Volume 90 FL (80-99) 91 FL (80-99) Mean Corpuscular Hemoglobin 28.8 PG (27.0-31.0) 28.9 PG (27.0-31.0) Mean Corpuscular Hemoglobin Concent 31.8 G/DL (32.0-36.0) 31.8 G/DL (32.0-36.0) Red Cell Distribution Width 16.6 % (11.6-14.8) 16.5 % (11.6-14.8) Platelet Count 327 K/UL (150-450) 331 K/UL (150-450) Mean Platelet Volume 6.4 FL (6.5-10.1) 5.9 FL (6.5-10.1) Neutrophils (%) (Auto) 75.6 % (45.0-75.0) 73.5 % (45.0-75.0) Lymphocytes (%) (Auto) 21.8 % (20.0-45.0) 24.2 % (20.0-45.0) Monocytes (%) (Auto) 1.4 % (1.0-10.0) 1.3 % (1.0-10.0) Eosinophils (%) (Auto) 0.7 % (0.0-3.0) 0.7 % (0.0-3.0) Basophils (%) (Auto) 0.5 % (0.0-2.0) 0.3 % (0.0-2.0) Sodium Level 134 mEQ/L (135-145) 134 mEQ/L (135-145) Potassium Level 4.4 mEQ/L (3.4-4.9) 4.1 mEQ/L (3.4-4.9) Chloride Level 96 mEQ/L (98-107) 94 mEQ/L (98-107) Carbon Dioxide Level 24 mEQ/L (20-30) 26 mEQ/L (20-30) Anion Gap 14 (5-15) 14 (5-15) Blood Urea Nitrogen 8 mg/dL (7-23) 6 mg/dL (7-23) Creatinine 0.5 mg/dL (0.5-0.9) 0.5 mg/dL (0.5-0.9) Estimat Glomerular Filtration Rate > 60 mL/min (>60) > 60 mL/min (>60) Glucose Level 97 mg/dL (74-106) 106 mg/dL (74-106) Calcium Level 8.6 mg/dL (8.6-10.2) 8.5 mg/dL (8.6-10.2) Current Medications Medications (Trade) Dose Ordered Sig/Gabriela Route PRN Reason Start Time Stop Time Status Last Admin Dose Admin Acetaminophen/ Hydrocodone Bitart 1 ea 1 ea Q6H PRN ORAL Moderate Pain (Pain Scale 4-6) 04/22/16 11:00 04/28/16 19:14 04/26/16 07:42 Ciprofloxacin (Cipro 400mg/ 200ml premix bag) 200 ml @ 200 mls/hr Q12HR@0600,1800 IV 04/24/16 16:00 05/01/16 15:59 04/26/16 05:46 Docusate Sodium (Colace) 100 mg TWICE A DAY ORAL 04/22/16 09:00 05/22/16 08:59 04/25/16 18:41 Meloxicam (Mobic) 15 mg DAILY ORAL 04/22/16 09:00 05/22/16 08:59 04/26/16 09:15 Oxycodone/ Acetaminophen (Percocet 10/325) 1 tab Q4H PRN ORAL Severe Pain (Pain Scale 7-10) 04/22/16 11:00 04/29/16 10:59 04/25/16 22:43 Prednisone (predniSONE) 5 mg DAILY ORAL 04/22/16 09:00 05/22/16 08:59 04/26/16 09:16 EN DAVIS Apr 26, 2016 13:44
[2016-04-26 16:00] VITALS: BP 114/72
--- NOTE | 2016-04-26 20:31 | Discharge Summary ---
Discharge Summary Discharge Summary Discharge Summary DATE OF ADMISSION: 04/21/2016 DATE OF DISCHARGE: 04/26/2016 REASON FOR HOSPITALIZATION: complicated uti RA s/p radiation to pelvic area CONDITION IN THE HOSPITAL wasadmmited iwth complicated outi failed outpatient treatmetn was in the er couple of times previosudly priot to admit had ecoli multi resistant and treatedwith keflex in [place] cultre grew pseudonas plan dc home with cipr 4 more days DISCHARGE CONDITION: The patient was stable at discharge. DISCHARGE MEDICATION: same as prior to admit also cipro 500 bid for 4 days SUJATA ARRINGTON Apr 26, 2016 20:31
[2016-04-26] MEDS ORDERED: CIPRO500 MG PO (20:36)
[2016-04-26] MEDS ORDERED: PROBIOTIC ACID1 EAC3 PO (20:37)
== END 2016-04-26 21:05 | disposition home or self-care (01) | DRG 690 ==
LOC: EMR 15:11 → 4E 16:08 → EDBEDREQ 16:58 → 4E 04-22 11:46
DX: N39.0 Urinary tract infection, site not specified (principal); N13.30 Unspecified hydronephrosis; Z85.89 Personal history of malignant neoplasm of other organs and systems; Z92.3 Personal history of irradiation; M19.90 Unspecified osteoarthritis, unspecified site; Z85.038 Personal history of other malignant neoplasm of large intestine; Z88.0 Allergy status to penicillin; M06.9 Rheumatoid arthritis, unspecified; D63.8 Anemia in other chronic diseases classified elsewhere; Z93.3 Colostomy status; Z96.649 Presence of unspecified artificial hip joint; B96.5 Pseudomonas (aeruginosa) (mallei) (pseudomallei) as the cause of diseases classified elsewhere
CPT/HCPCS: 36415; 76700; 80048; 80053; 81003; 83605; 85025; 87040; 87086; 87181